=== PATIENT | female | born 1975 | race Caucasian/White ===

== ENCOUNTER 2022-02-15 12:43 | Outpatient (CLI) | payer OTHER, SELFPAY ==
[2022-02-15 15:19] LABS: Cholesterol* 187 mg/dL (90-199)
[2022-02-15 15:20] LABS: Glucose* 89 mg/dL (60-115); HDL Cholesterol* 67 mg/dL (>=50); LDL Cholesterol Calculated 111 mg/dL (<100); Triglycerides* 45 mg/dL (40-149)
== END 2022-02-15 12:44 | disposition home or self-care (01) ==
PROVIDERS: PCP Nurse Practitioner Family; Visit Provider Nurse Practitioner Family
DX: Z00.00 Encounter for general adult medical examination without abnormal findings (principal); Z13.1 Encounter for screening for diabetes mellitus; Z13.6 Encounter for screening for cardiovascular disorders
CPT/HCPCS: 36415; 80061; 82947

== ENCOUNTER 2023-09-09 11:01 | Emergency (ER) | payer BC, SELFPAY ==
[2023-09-09] VITALS (16 sets, daily range): BP systolic 107–119; BP diastolic 65–78; PULSE 68–76; RESP 16–24; TEMP 37; O2SAT 5–99; BMI 27.4
--- NOTE | 2023-09-09 12:43 | ED_ITS ---
HPI - General Adult General Chief complaint: Shortness of Breath/Dyspnea Stated complaint: 1 week post op/shortness of breath Time Seen by Provider: 09/09/23 12:42 History of Present Illness HPI narrative: C/o waking up short of breath , walking to the bathroom and not being able to get up after. pt is 1 week post abdominal plasty and liposuction. 48-year-old woman presenting to the emergency depart with concern of shortness of breath. Was in a meeting today virtually and was noticed to be particularly dyspneic and recommended for evaluation. She is 1 week status post abdominoplasty and liposuction. She has been feeling a little short of breath ever since the surgery and increasingly so especially this morning on exertion. She has not had a cough or cold symptoms no fevers. She has been wearing her compression stockings doing or ankle pumps and generally sounds to be active. No underlying respiratory disease. Is not having any pain; dyspnea is not associated with pleuritic pain. She has been feeling some lightheadedness. No peripheral numbness or tingling. On exam looks to have had an epidural for anesthesia Related Data Home Medications Medication Instructions Recorded Confirmed citalopram 40 mg tablet 40 mg PO QDAY 02/15/22 09/09/23 apixaban 2.5 mg tablet (Eliquis) 2.5 mg PO BID 09/09/23 09/09/23 Allergies Allergy/AdvReac Type Severity Reaction Status Date / Time codeine AdvReac Verified 09/09/23 13:41 Review of Systems Status of ROS: Reports: 6 or more systems reviewed and unremarkable except as noted in History and below PFSH PFSH Family History (Updated 02/22/22 @ 06:36 by Diamond Martin, MASH FILTER OPERATOR, DENTAL CHAIRSIDE ASSISTANT) Other FH: prostate cancer Social History Narrative: . 2 children. Non-smoker. No illicit drug use. Smoking Status: Never smoker How often do you have a drink containing alcohol: monthly or less AUDIT-C Alcohol total score: 1 Non-prescribed substance use: denies use Little interest or pleasure in doing things: not at all Feeling down, depressed, or hopeless: not at all Exam Narrative: Exam Narrative: Pleasant. Positive affect. NAD other than clearly tachypneic and mildly labored. She becomes tearful later in our conversation. Skin is warm and dry. Has a ANTOINE drain in place with serosanguineous fluid. No inflammatory changes about low abdominal incision. There is a Tegaderm without inflammatory changes at the low thoracic spine. Lungs appear to be clear. No supraclavicular crepitus. Breath sounds throughout. Heart in regular rate and rhythm. Well-perfused extremities. Lower legs are in compression stockings and are not tender to palpation. Negative Homans. During exam moving her about it appeared as though tachypnea transiently faded with this distraction Const: Vital Signs, click to edit/add: Vital Signs - 24 hr 09/09/23 12:38 09/09/23 12:39 09/09/23 12:45 Temperature Pulse Rate 69 71 72 Respiratory Rate 16 16 16 Blood Pressure 110/65 Pulse Oximetry 97 96 95 09/09/23 13:00 09/09/23 13:00 09/09/23 13:01 Temperature Pulse Rate 69 68 Respiratory Rate 16 16 Blood Pressure 107/75 Pulse Oximetry 5 L 96 95 09/09/23 13:15 09/09/23 13:43 09/09/23 13:44 Temperature Pulse Rate 68 72 Respiratory Rate Blood Pressure 118/70 Pulse Oximetry 96 98 98 09/09/23 13:45 09/09/23 14:00 09/09/23 14:01 Temperature Pulse Rate 71 69 72 Respiratory Rate 16 Blood Pressure 119/71 Pulse Oximetry 96 95 95 09/09/23 14:15 09/09/23 14:30 09/09/23 14:31 Temperature Pulse Rate 71 75 76 Respiratory Rate Blood Pressure 115/78 Pulse Oximetry 95 97 99 09/09/23 14:31 09/09/23 14:45 Temperature 98.6 F Pulse Rate 76 72 Respiratory Rate 16 Blood Pressure 115/78 Pulse Oximetry 99 95 Documenting provider has reviewed patient's vital signs: yes Course Vital Signs Vital signs: Initial Vital Signs Temperature 98.6 F 09/09/23 11:19 Temperature Source Temporal Artery Scan 09/09/23 11:19 Pulse Rate 76 09/09/23 11:19 Respiratory Rate 24 09/09/23 11:19 Blood Pressure 107/72 09/09/23 11:19 Blood Pressure Mean 83 09/09/23 11:19 Blood Pressure Position Sitting 02/20/24 11:19 Pulse Oximetry 96 09/09/23 11:19 Oxygen Delivery Method Room Air 09/09/23 11:19 Vital Signs Temperature 98.6 F 09/09/23 11:19 Pulse Rate 76 09/09/23 11:19 Respiratory Rate 24 09/09/23 11:19 Blood Pressure 107/72 09/09/23 11:19 Pulse Oximetry 96 09/09/23 11:19 Oxygen Delivery Method Room Air 09/09/23 11:19 Temperature 98.6 F 09/09/23 14:31 Pulse Rate 72 09/09/23 14:45 Respiratory Rate 16 09/09/23 14:31 Blood Pressure 115/78 09/09/23 14:31 Pulse Oximetry 95 09/09/23 14:45 Oxygen Delivery Method Room Air 09/09/23 11:19 Medications Administered Medications: Discontinued Medications Generic Name Dose Route Start Last Admin Trade Name Freq PRN Reason Stop Dose Admin Sodium Chloride 1,000 mls @ 1,000 mls/hr 09/09/23 12:54 09/09/23 14:34 0.9 % Sodium Chloride 1000 Ml IV 09/09/23 13:53 Infused .Q1H ONE Infusion Medical Decision Making MDM Narrative Medical decision making narrative: I did discuss potential psychogenic air hunger in differential. Hard not to assess for pulmonary embolus though at this point. Will need to scan. Labs otherwise are pending. Anemia would be in differential as well. Was not particularly hypoxic during our conversation. Lowest oxygen level I saw was 96%. Differential also includes pneumonia, atelectasis, pulmonary infarct, pneumothorax IV was established. Anticipating contrast initiated also on IV fluids. Labs are reassuring with normal white count. Is not particularly anemic; certainly not enough to cause symptoms. D-dimer elevated as expected A my review of CT angio chest there looks to be consolidation or maybe atelectatic change in the bases. Radiology over-read as below TECHNIQUE: CT chest PE was acquired with 95 cc Isovue 370 IV contrast. COMPARISON: None. FINDINGS: Heart and vasculature: Contrast opacification of the pulmonary arterial tree is adequate. No sign of pulmonary embolism. Heart size is normal. Thoracic aorta and pulmonary artery are normal in caliber. Lungs and pleura: Right lower lobe consolidation as well as right middle lobe consolidation. Left lower lobe consolidation. Low lung volumes. Small bilateral pleural effusions, greater on the right than the left. No suspicious nodules. No significant ground-glass or interstitial opacities. Lymph nodes/mediastinum: No mediastinal, hilar, or axillary adenopathy. Chest wall: No masses. Upper abdomen: No acute or significant findings. Status post cholecystectomy. Above average colonic stool volume in the visualized portion. Bones: Unremarkable for age. IMPRESSION: 1. No pulmonary embolism identified. 2. Bilateral small pleural effusions worse on the right than the left. Bilateral lower lobe consolidations and right middle lobe consolidation likely related to atelectasis. Superimposed aspiration or infection not entirely excluded. Monitored without further event in the emergency department. Vitals look good With normal white count, no fever and considering what surgery was done including postop abdominal binder, I think postoperative effusion and atelectatic changes are most likely explanation here. I would encourage focused efforts at inspiratory with close re-evaluation is needed. See patient discharge plan Lab Data Lab results reviewed: Yes I reviewed the patient's lab results Labs: Lab Results 09/09/23 09/09/23 Range/Units 12:40 Unknown WBC 5.78 (4.50-11.00) K/uL RBC 3.53 L (4.00-5.20) m/uL Hgb 10.7 L (12.0-16.0) gm/dL Hct 32.5 L (33.0-51.0) % MCV 92 (80-100) fL MCH 30 (26-34) pg MCHC 33 (32-36) gm/dL RDW Coeff of Jyothi 13.7 (11.5-15.5) % Plt Count 261 (140-440) K/uL Neut % (Auto) 58.7 (42.0-72.0) % Lymph % (Auto) 26.5 (20-44) % Ferry % (Auto) 8.0 (0.0-11.0) % Eos % (Auto) 5.5 (0.0-7.0) % Baso % (Auto) 0.3 (0.0-3.0) % Neut # (Auto) 3.39 (1.7-7.0) K/uL Lymph # (Auto) 1.53 (0.90-2.90) K/uL Ferry # (Auto) 0.50 (0.00-0.90) K/UL Eos # (Auto) 0.32 (0.00-0.50) K/uL Baso # (Auto) 0.02 (0.00-0.30) K/uL Abs Immat Gran (auto) 0.06 (0.00-0.30) K/uL Imm/Tot Granulo (auto) 1.0 % D-Dimer Quant (PE/DVT) 0.95 H (0.00-0.50) ug/ml VBG pH 7.413 (7.32-7.43) VBG pCO2 46 (40-50) mmHG VBG pO2 34.4 (25-47) mmHG VBG HCO3 29 H (21-28) mmol/L Sodium 136 (135-149) mmol/L Potassium 4.1 (3.6-5.1) mmol/L Chloride 104 (96-114) mmol/L Carbon Dioxide 29 (20-32) mmol/L Anion Gap 3 L (7-15) mEq/L BUN 11 (5-24) mg/dL Creatinine 0.7 (0.5-1.5) mg/dL Estimated Creat Clear 98.07 Estimated GFR 106 ml/min Glucose 95 (60-115) mg/dL Calcium 8.9 (8.4-10.6) mg/dL Troponin I < 0.01 L (0.01-0.04) ng/mL C-Reactive Protein 1.5 H (0.5-1.0) mg/dL NT-Pro-B Natriuret Pep 424 pg/mL SARS-CoV-2 (PCR) Negative SARS-CoV-2 (Negative) Influenza Type A (PCR) Negative PCR FLU A (Negative) Influenza Type B (PCR) Negative PCR FLU B (Negative) RSV (PCR) Negative PCR RSV (Negative) POC Troponin I 0.00 L (0.01-0.04) ng/ml ECG Data Attestation: I personally reviewed and interpreted this ECG as follows: (Normal sinus rhythm without ischemic changes. Rate of 70.) Discharge Plan Discharge Clinical Impression: Dyspnea, Pleural effusion, Atelectasis Patient Disposition: Home w/ Parent or Adult Condition: Stable Additional Instructions: Please use this in spirometer to encourage regular deep breathing throughout the day. I hope that this will re-expand your lungs and encourage mobilization of fluid. Be active as much as you are able within the parameters given to you by your surgeon. I would tentatively schedule follow-up in clinic in 7-10 days for a recheck however if you are feeling completely better I suppose that is probably not n ecessary. Otherwise be seen by marked increase in persistent shortness of breath, persistent and increasing chest pain, associated fever. Prescriptions: No Action citalopram 40 mg tablet 40 mg PO QDAY Eliquis 2.5 mg tablet 2.5 mg PO BID Follow Up/Referrals: Diamond Martin, MASH FILTER OPERATOR, DENTAL CHAIRSIDE ASSISTANT [Nurse Practitioner] - Stand Alone Forms: [employer] Info Instructions
--- NOTE | 2023-09-09 12:54 | CT_ITS ---
Final Report Patient: DAVID THOMAS Facility:?[facility] Patient ID:?[id number] Site Patient ID:?[id number]. Site :?[id number] Study:?CT Chest PE 95CC ISOVUE 370-09/09/2023 1:46:19 PM Ordering Physician:NESTOR Final Report: INDICATION: POST OP Dyspnea-SURGERY 1 WEEK AGO ABD PLASTY AND LIPOSUCTION. TECHNIQUE: CT chest PE was acquired with 95 cc Isovue 370 IV contrast. COMPARISON: None. FINDINGS: Heart and vasculature: Contrast opacification of the pulmonary arterial tree is adequate. No sign of pulmonary embolism. Heart size is normal. Thoracic aorta and pulmonary artery are normal in caliber. Lungs and pleura: Right lower lobe consolidation as well as right middle lobe consolidation. Left lower lobe consolidation. Low lung volumes. Small bilateral pleural effusions, greater on the right than the left. No suspicious nodules. No significant ground-glass or interstitial opacities. Lymph nodes/mediastinum: No mediastinal, hilar, or axillary adenopathy. Chest wall: No masses. Upper abdomen: No acute or significant findings. Status post cholecystectomy. Above average colonic stool volume in the visualized portion. Bones: Unremarkable for age. IMPRESSION: 1. No pulmonary embolism identified. 2. Bilateral small pleural effusions worse on the right than the left. Bilateral lower lobe consolidations and right middle lobe consolidation likely related to atelectasis. Superimposed aspiration or infection not entirely excluded. Please note that all CT scans at this facility use dose modulation, iterative reconstruction, and/or weight-based dosing when appropriate to reduce radiation dose to as low as reasonably achievable. Dictated by Dequan Turner MD @ 09/09/2023 2:18:33 PM (Electronic Signature)
[2023-09-09] MEDS: 0.9 % SODIUM CHLORIDE 1000 ml 1,000 ML IV (13:00)
[2023-09-09 13:09] LABS: HCO3 VBG 29 mmol/L (21-28); PCO2 VBG 46 mmHG (40-50); PO2 VBG 34.4 mmHG (25-47); pH VBG 7.413 (7.32-7.43)
[2023-09-09 13:17] LABS: Basophils Absolute Auto 0.02 K/uL (0.00-0.30); Basophils Percent Auto 0.3 % (0.0-3.0); Eosinophils Absolute Auto 0.32 K/uL (0.00-0.50); Eosinophils Percent Auto 5.5 % (0.0-7.0); Hematocrit 32.5 % (33.0-51.0); Hemoglobin* 10.7 gm/dL (12.0-16.0); Immature Granulocytes Abs Auto 0.06 K/uL (0.00-0.30); Lymphocytes Absolute Auto 1.53 K/uL (0.90-2.90); Lymphocytes Percent Auto 26.5 % (20-44); Mean Corpuscular HGB Conc 33 gm/dL (32-36); Mean Corpuscular Hemoglobin 30 pg (26-34); Mean Corpuscular Volume 92 fL (80-100); Neutrophils Absolute Auto 3.39 K/uL (1.7-7.0); Neutrophils Percent Auto 58.7 % (42.0-72.0); Platelet Count* 261 K/uL (140-440); RDW Coefficient of Variation % 13.7 % (11.5-15.5); Red Blood Count 3.53 m/uL (4.00-5.20); White Blood Count* 5.78 K/uL (4.50-11.00)
[2023-09-09 13:25] LABS: Slide Review Reflex No
[2023-09-09 13:26] LABS: Chloride* 104 mmol/L (96-114); Sodium* 136 mmol/L (135-149)
[2023-09-09 13:28] LABS: Creatinine* 0.7 mg/dL (0.5-1.5); Est. Creatinine Clearance* 98.07; Estimated Glomerular Filt Rate 106 ml/min
[2023-09-09 13:29] LABS: Anion Gap 3 mEq/L (7-15); Blood Urea Nitrogen* 11 mg/dL (5-24); Carbon Dioxide* 29 mmol/L (20-32); Glucose* 95 mg/dL (60-115)
[2023-09-09 13:30] LABS: Calcium* 8.9 mg/dL (8.4-10.6)
[2023-09-09 13:31] LABS: D Dimer Quantitative* 0.95 ug/ml (0.00-0.50)
[2023-09-09 13:32] LABS: C Reactive Protein* 1.5 mg/dL (0.5-1.0)
[2023-09-09 13:38] LABS: NT Pro B Type NatriureticPept* 424 pg/mL
[2023-09-09 13:44] LABS: Troponin I* < 0.01 ng/mL (0.01-0.04)
[2023-09-09 13:57] LABS: PCR FLU A Negative PCR FLU A (Negative); PCR FLU B Negative PCR FLU B (Negative); PCR RSV Negative PCR RSV (Negative); SARS PCR* Negative SARS-CoV-2 (Negative)
[2023-09-09 14:45] LABS: Potassium* 4.1 mmol/L (3.6-5.1)
== END 2023-09-09 14:56 | disposition home or self-care (01) ==
PROVIDERS: Emergency Provider Family Medicine; PCP Physician Assistant Medical
DX: R06.00 Dyspnea, unspecified (principal); I26.99 Other pulmonary embolism without acute cor pulmonale; J98.11 Atelectasis
CPT/HCPCS: 36415; 71275; 80048; 82803; 83880; 84484; 85025; 85379; 86140; 87631; 93005; 94761; 96360; 99284; 99285; J7030; Q9967

== ENCOUNTER 2024-06-29 16:45 | Outpatient (RCR) | payer BC, SELFPAY | END 2024-10-27 23:59 | disposition home or self-care (01) | PROVIDERS: PCP Physician Assistant Medical; Visit Provider Physician Assistant Medical | DX: M75.02 Adhesive capsulitis of left shoulder (principal); M25.512 Pain in left shoulder; M25.612 Stiffness of left shoulder, not elsewhere classified; Z51.89 Encounter for other specified aftercare | CPT/HCPCS: 97032; 97110; 97140; 97161 ==